=== PATIENT | female | born 1980 | race Two or more races ===

== ENCOUNTER 2016-04-29 09:09 | Emergency (ER) | payer OTHER ==
[2016-04-29 09:38] VITALS: BP 134/84; PULSE 62; RESP 14; TEMP 97.9; O2SAT 97
--- NOTE | 2016-04-29 10:23 | UCPHY ---
H & P Time Seen by Provider: 04/29/16 09:36 Patient Type: New HPI/ROS: HPI Left pelvic discomfort, left lower back discomfort. 35-year-old female by private vehicle with her . This patient is a G2, P0. She presents with complaint of a vague sensation of fullness in her left lower pelvic/groin area which radiates somewhat to the left lower back. Symptoms have been present for about 2 weeks now. She denies any vaginal bleeding or vaginal discharge. Last menstrual period was the end of March. Normal flow. No vaginal discharge or vaginal bleeding currently. She denies any urinary complaints. No fever. She is also concerned about a palpable lump in the lateral aspect of her left breast. She moved to this area not too long ago and has not established a primary care physician relationship. She is also asking for a referral to establish a primary care physician relationship. ROS: Constitutional: No fever, no chills. No weakness. Eyes: No discharge. No changes in vision. ENT: No sore throat. No nasal congestion or rhinorrhea. Respiratory: No cough. No shortness of breath. Cardiac: No chest pain, no palpitations. Gastrointestinal: As above, no vomiting, no diarrhea. Genitourinary: No hematuria. No dysuria or increased frequency with urination. As above. Musculoskeletal: No back pain. No neck pain. No myalgias or arthralgias. Skin: No rashes. Neurological: No headache. No focal weakness or altered sensation. Past medical history: Recent upper respiratory infection. She states that her symptoms started about the same time as this upper respiratory infection. Social history: Here with her . As above. Nonsmoker. Physical Exam: General Appearance: Alert, no distress. This patient is responding to questions appropriately and in full sentences. This patient appears well- hydrated and well-nourished. Eyes: Pupils equal and round no pallor or injection. No lid edema, erythema or injection. Respiratory: There are no retractions, lungs are clear to auscultation with good air movement bilaterally. Cardiovascular: Regular rate and rhythm. No murmur. Left breast exam: Significant for a small lump about the size of a pea mid lateral aspect of left breast. No associated warmth, erythema or fluctuance. Gastrointestinal: Abdomen is soft and nontender, no masses, bowel sounds normal. No focal tenderness at McBurney's point. No Hoskins sign. Pelvic exam: Speculum examination the cervix appears normal. The os is closed. No bleeding. No discharge. No cervical motion tenderness. No vaginal wall lesions. Neurological: Motor sensory function is grossly intact. Cranial nerves are normal. Gait is normal. Skin: Warm and dry, no rashes. Musculoskeletal: No significant CVA tenderness on palpation bilaterally. Extremities are symmetrical. All joints range without pain or impingement. Psychiatric: No agitation. No depression. Database: EKG: Imaging: Pelvic ultrasound: Negative for any significant pathology. Results were discussed with staff radiologist Dr. Lupillo Carter. Procedures: Emergency department course: Urine specimen obtained. Vital signs reviewed and are normal. Patient is requesting a pelvic exam. This was done as noted above with a nurse nursing program coordinator. Pelvic ultrasound performed as above. I discussed referral to [facility] for establishment of a primary care physician relationship and ongoing healthcare management. Left breast lump is to be evaluated on 1st visit and appropriate imaging/biopsy arranged as needed. 11:00 a.m., patient re-evaluated. Resting comfortably at this time. Results of urinalysis, urine and pelvic ultrasound discussed with her and her . She feels comfortable going home and I feel she is safe for discharge. Plan will be to have her follow up with [facility] as above for re-evaluation and further management. She is aware that test results are outstanding and should be available within the next 2-3 days. Immediate return to Urgent Care/emergency department precautions were reviewed with her and her . All of their questions were answered. She was discharged in good condition. Differential Diagnosis: The differential diagnosis on this patient includes but is not limited to urinary tract infection, ovarian cyst. Ovarian torsion, PID, Trichomonas, symptomatic vaginosis, STD, other serious bacterial infection unlikely. This represents a partial list of diagnoses considered. These considerations are based on history, physical exam, past history, reassessment and diagnostic testing. Smoking Status: Never smoked Constitutional: Initial Vital Signs Temperature (C) 36.6 C 04/29/16 09:33 Heart Rate 62 04/29/16 09:33 Respiratory Rate 14 04/29/16 09:33 Blood Pressure 134/84 H 04/29/16 09:33 O2 Sat (%) 97 04/29/16 09:33 O2 Delivery Mode Room Air Allergies/Adverse Reactions: Sulfa (Sulfonamide Antibiotics) Allergy (Verified 04/29/16 09:33) Home Medications: Medication Instructions Recorded NK [No Known Home Meds] 04/29/16 Medical Decision Making - Data Points Laboratory Results: 04/29/16 04/29/16 04/29/16 10:50 10:20 10:20 Urine Color YELLOW Urine Appearance HAZY Urine pH 6.5 (5.0-7.5) Ur Specific Morrison <= 1.005 (1.002-1.030) Urine Protein NEGATIVE (NEGATIVE) Urine Ketones NEGATIVE (NEGATIVE) Urine Blood NEGATIVE (NEGATIVE) Urine Nitrate NEGATIVE (NEGATIVE) Urine Bilirubin NEGATIVE (NEGATIVE) Urine Urobilinogen 0.2 EU EU (0.2-1.0) Ur Leukocyte Esterase NEGATIVE (NEGATIVE) Urine RBC 0-1 /hpf /hpf (0-3) Urine WBC 0-1 /hpf /hpf (0-3) Ur Epithelial Cells 1+ /lpf /lpf (NONE-1+) Urine Bacteria 1+ /hpf H /hpf (NONE SEEN) Urine Mucus TRACE /lpf /lpf (NONE-1+) Urine Yeast OCCASIONAL /hpf H /hpf (NONE SEEN) Ur Culture Indicated? INDICATED H (NI) Urine Glucose NEGATIVE (NEGATIVE) Urine Test Trichomonas (Wet Prep) NO YEAST Magali species DNA Pending C.trachomatis RNA (TMA) Pending Gardnerella DNA Probe Pending N.gonorrhoeae RNA (TMA) Pending Trichomonas DNA Probe Pending 04/29/16 10:20 Urine Color Urine Appearance Urine pH Ur Specific Morrison Urine Protein Urine Ketones Urine Blood Urine Nitrate Urine Bilirubin Urine Urobilinogen Ur Leukocyte Esterase Urine RBC Urine WBC Ur Epithelial Cells Urine Bacteria Urine Mucus Urine Yeast Ur Culture Indicated? Urine Glucose Urine Test NEGATIVE Trichomonas (Wet Prep) Magali species DNA C.trachomatis RNA (TMA) Gardnerella DNA Probe N.gonorrhoeae RNA (TMA) Trichomonas DNA Probe Departure - Departure Disposition: Home, Routine, Self-Care Clinical Impression: Pelvic pain Condition: Good Instructions: Pelvic Pain in Women (ED) Additional Instructions: Read and follow provided instructions. Follow-up with your primary care physician at [facility] for re- evaluation and ongoing healthcare management. Have them evaluate the small lump palpated in your left breast. They can arrange for appropriate imaging and biopsy if needed. They will also have access to all of my notes as well as testing and results done at urgent care today. They can also refer you to specialist as needed. Return to the emergency department for worsening pain, fever, vomiting or other serious concerns. Referrals: [facility] [Outside] - As per Instructions - PQRS PQRS Measurement: Not applicable.
[2016-04-29 10:24] LABS: COLOR YELLOW; LEUKOCYTE ESTERASE,URINE NEGATIVE (NEGATIVE); NITRITE,URINE NEGATIVE (NEGATIVE); PH,URINE 6.5 (5.0-7.5)
[2016-04-29 10:49] LABS: BACTERIA 1+ /hpf (NONE SEEN); MUCUS TRACE /lpf (NONE-1+); RBC,URINE 0-1 /hpf (0-3); WBC,URINE 0-1 /hpf (0-3); YEAST OCCASIONAL /hpf (NONE SEEN)
[2016-04-30 14:29] LABS: CHLAMYDIA AMPLIFICATION GENPRB NEGATIVE (NEGATIVE)
== END 2016-04-29 11:15 | disposition home or self-care (01) ==
LOC: CED 09:09
DX: R10.2 Pelvic and perineal pain (principal); N63 Unspecified lump in breast
CPT/HCPCS: 76856-PO; 81003-PO; 81015-PO; 81025-PO; 87210-PO; 99203-PO; G0463-PO

== ENCOUNTER → 2017-12-22 | Outpatient (CLI) | payer OTHER | LOC: CIMAGING 12:20 | PROVIDERS: ATTEND Family Medicine | DX: M54.5 Low back pain (principal); R10.9 Unspecified abdominal pain; G89.29 Other chronic pain; Z82.69 Family history of other diseases of the musculoskeletal system and connective tissue | CPT/HCPCS: 72070-PO; 72100-PO; 72202-PO ==